=== PATIENT | male | born 2000 | race Hispanic/Latino ===

== ENCOUNTER 2025-02-02 23:07 | Inpatient (IN) | payer SELFPAY ==
[2025-02-03] MEDS ORDERED: Acetaminophen 325 MG TAB PO PRN (01:01)
[2025-02-03] MEDS ORDERED: Ondansetron PF 4 MG/2 ML Vial IVP PRN (01:01)
[2025-02-03 03:52] LABS: #Basophils Less than 0.03 10x3/uL (0.0-0.2); #Eosinophils 0.12 10x3/uL (0.0-0.7); #Monocytes 0.73 10x3/uL (0.11-0.59); #Neutrophils 3.10 10x3/uL (1.40-6.50); %Basophils 0.4 % (0.0-1.0); %Eosinophils 2.3 % (0.0-10.0); %Lymphocytes 23.0 % (21.0-51.0); %Monocytes 14.1 % (0.0-10.0); %Neutrophils 60.0 % (42.0-75.0); Hematocrit 41.0 % (42.0-52.0); Hemoglobin 13.3 g/dL (14.0-18.0); Mean Corpuscular Hemoglobin 28.2 pg (27.0-31.0); Mean Corpuscular Volume 87.0 fL (78.0-98.0); Platelet Count 168 10x3/uL (130-400); Red Blood Cell (RBC) Count 4.71 mill/uL (4.70-6.10); White Blood Cell (WBC) Count 5.17 10x3/uL (4.8-10.8)
[2025-02-03 04:17] VITALS: BMI 32.5
[2025-02-03 04:26] LABS: ALT (SGPT) 278 U/L (Less than 45); AST (SGOT) 240 U/L (11-34); Albumin 3.8 g/dL (3.1-4.5); Alkaline Phosphatase 67 U/L (40-110); Anion Gap 19 mmol/L (10-20); BUN (Urea Nitrogen) Less than 4 mg/dL (8.9-20.6); Bilirubin, Total 0.7 mg/dL (0.3-1.2); Calc. Creatinine Clearance 261 mL/min (70-130); Calcium 8.7 mg/dL (7.8-10.44); Carbon Dioxide 18 mmol/L (22-29); Chloride 103 mmol/L (98-107); Globulin 3.7 g/dL (2.4-3.5); Glucose 95 mg/dL (70-105); Potassium 3.5 mmol/L (3.5-5.1); Sodium 136 mmol/L (136-145)
[2025-02-03] MEDS: Multivit, Therapeutic 1 TAB PO SCH (10:01)
[2025-02-03] MEDS: Pantoprazole 40 MG DR.TAB PO SCH (10:01)
[2025-02-03] MEDS: Folic Acid 1 MG TAB PO SCH (10:01)
[2025-02-03] MEDS: Calcium Carbonate 500 MG ChewTAB PO PRN (18:29)
[2025-02-04 03:51] LABS: #Basophils Less than 0.03 10x3/uL (0.0-0.2); #Eosinophils 0.14 10x3/uL (0.0-0.7); #Monocytes 0.68 10x3/uL (0.11-0.59); #Neutrophils 3.98 10x3/uL (1.40-6.50); %Basophils 0.3 % (0.0-1.0); %Eosinophils 2.4 % (0.0-10.0); %Lymphocytes 18.4 % (21.0-51.0); %Monocytes 11.5 % (0.0-10.0); %Neutrophils 67.1 % (42.0-75.0); Hematocrit 42.3 % (42.0-52.0); Hemoglobin 13.5 g/dL (14.0-18.0); Mean Corpuscular Hemoglobin 28.2 pg (27.0-31.0); Mean Corpuscular Volume 88.3 fL (78.0-98.0); Platelet Count 160 10x3/uL (130-400); Red Blood Cell (RBC) Count 4.79 mill/uL (4.70-6.10); White Blood Cell (WBC) Count 5.93 10x3/uL (4.8-10.8)
[2025-02-04 04:09] LABS: ALT (SGPT) 362 U/L (Less than 45); AST (SGOT) 337 U/L (11-34); Albumin 3.6 g/dL (3.1-4.5); Alkaline Phosphatase 73 U/L (40-110); Anion Gap 14 mmol/L (10-20); BUN (Urea Nitrogen) 6 mg/dL (8.9-20.6); Bilirubin, Total 0.9 mg/dL (0.3-1.2); Calc. Creatinine Clearance 220 mL/min (70-130); Calcium 9.0 mg/dL (7.8-10.44); Carbon Dioxide 23 mmol/L (22-29); Chloride 103 mmol/L (98-107); Globulin 3.6 g/dL (2.4-3.5); Glucose 117 mg/dL (70-105); Potassium 3.4 mmol/L (3.5-5.1); Sodium 137 mmol/L (136-145)
[2025-02-04] MEDS: PNEUMOC 20-VAL CONJ-DIP CRM/PF 0.5 ML SYRINGE IM ONE (10:50)
[2025-02-04 22:40] VITALS: BP 130/85; TEMP 98.5
[2025-02-06] MEDS ORDERED: Thiamine 100 MG TAB PO SCH (01:00)
== END 2025-02-04 17:00 | disposition home or self-care (01) | DRG 897 ==
LOC: 2SE 02-03 00:25
PROVIDERS: ADMIT Student in an Organized Health Care Education/Training Program; ATTEND Internal Medicine
DX: F10.139 Alcohol abuse with withdrawal, unspecified (principal); Y90.6 Blood alcohol level of 120-199 mg/100 ml; R74.01 Elevation of levels of liver transaminase levels
CPT/HCPCS: 36415; 80053; 85025; 90471; 90677; G0009; J3411